=== PATIENT | female | born 2000 | race Caucasian/White ===

== ENCOUNTER 2021-04-24 23:20 | Outpatient (CLI) | payer OTHER ==
[2021-04-25 00:23] VITALS: BP 108/70; PULSE 92; RESP 16; TEMP 96.6
--- NOTE | 2021-04-25 03:08 | P.MSEPDOC ---
Presenting Problems - Arrival Data Date of Arrival on Unit: 04/24/21 Time of Arrival on Unit: 23:20 Mode of Transport: Ambulatory - Complaint OB-Reason for Admission/Chief Complaint: Other Comment: perineal pain and pressure Medical History - Information : 1 Para: 0 Term: 0 : 0 Abortions: Spontaneous or Elective: 0 Number of Living Children: 0 - Gestational Age Gestational Age by ALBERTO (wks/days): 28 Weeks and 3 Days - History Complications: Smoker Review of Systems - Review of Systems Constitutional: No problems Breast: No problems ENT: No problems Cardiovascular: No problems Respiratory: No problems Gastrointestinal: No problems Genitourinary: No problems Musculoskeletal: No problems Neurological: No problems Skin: No problems Comment: perineum and labial reddened and warm Vital Signs - Temperature Temperature: 96.6 F Temperature Source: Temporal Artery Scan - Pulse Pulse Oximetery Pulse Rate: 92 Pulse Assessment Method: Pulse Oximetry - Respirations Respiratory Rate: 16 Oxygen Delivery Method: Room Air O2 Sat by Pulse Oximetry: 98 - Blood Pressure Right Arm Blood Pressure: 108/70 Blood Pressure Mean: 82 Blood Pressure Source: Automatic Cuff Medical Screen Scoring (Pre) - Cervical Exam Dilation: Exam Deferred Effacement: Exam Deferred Membranes: Intact - Uterine Contractions Frequency: N/A Duration: N/A Intensity: N/A - Maternal Vital Signs Maternal Temperature: N/A Maternal Blood Pressure: N/A Signs of Preeclampsia: N/A Maternal Respirations: N/A - Maternal Trauma Maternal Trauma: N/A - Assessment - Baby A Baseline FHR: 125 Heart Rate - NICHD Category: Category I (Normal) = 0 NST: Reactive Position: N/A Station: N/A - Total Score - Baby A Total Score - Baby A: 0 - Total Score - Baby B Total Score - Baby B: 0 - Total Score - Baby C Total Score - Baby C: 0 - Level of Risk - Baby A Level of Risk - Baby A: Low (0-5) - Level of Risk - Baby B Level of Risk - Baby B: Low (0-5) - Level of Risk - Baby C Level of Risk - Baby C: Low (0-5) Physician Notification (Pre) - Physician Notified Physician Notified Date: 04/24/21 Physician Notified Time: 23:58 New Order Received: Yes - Notification Comment Comment: Dr. Gonzáles called, report given on maternal and status, pt complains of. perineal pain/pressure x3days, external tissues are warm to touch and reddened, no. abnormal amount of discharge noted. NST is reactive. Orders to discharge pt home with. instructions to make an appointment to see her OB tomorrow. Disposition - Disposition OB Disposition: Discharge to home Discharge Date: 04/25/21 Discharge Time: 00:06 I agree with the RN Medical Screening Exam: Yes Case reviewed; plan agreed upon as documented in EMR&OBIX.: Yes Diagnosis: PAIN, UNSPECIFIED (This patient is a 21-year-old 1 para 0 female at 28 weeks gestation with care approximately 1 hour away and [facility]. Patient's been having 3 days of perineal discomfort. Examinati on per the RN shows no acute processes. heart tones are reassuring. Patient is instructed follow-up with her primary [employer] SUPERVISOR within 24 hours for a pelvic exam no evidence of maternal compromise at this time.)
== END 2021-04-25 00:06 | disposition home or self-care (01) ==
LOC: FBPOP 23:20
PROVIDERS: ATTEND Obstetrics & Gynecology
DX: O26.893 Other specified pregnancy related conditions, third trimester (principal); O99.333 Smoking (tobacco) complicating pregnancy, third trimester; F17.200 Nicotine dependence, unspecified, uncomplicated; R10.2 Pelvic and perineal pain; Z3A.28 28 weeks gestation of pregnancy
CPT/HCPCS: 59025; G0463; 99213

== ENCOUNTER 2021-05-03 00:32 | Outpatient (CLI) | payer OTHER ==
[2021-05-03 01:04] VITALS: BP 101/55; PULSE 74; RESP 16; TEMP 97.5
[2021-05-03 01:49] LABS: Appearance,Urine Clear (Clear); Bacteria,Urine Rare /hpf; Bilirubin,Urine Negative (Negative); Blood,Urine Negative (Negative); Color,Urine Light Yellow; Glucose,Urine (UA) Negative (Negative); Ketones,Urine Negative (Negative); Leukocyte Esterase,Urine Trace (Negative); Mucus,Urine Rare /hpf; Nitrite,Urine Negative (Negative); Protein,Urine Negative (Negative); RBC,Urine 1 /hpf (0-5); Specific Gravity,Urine 1.005 (1.001-1.035); Squamous Epithelial Cell,Urine 4 /hpf (0-4); Urobilinogen,Urine <2.0 mg/dL (<2.0); WBC,Urine 2 /hpf (0-5)
--- NOTE | 2021-05-22 09:38 | P.MSEPDOC ---
Presenting Problems - Arrival Data Date of Arrival on Unit: 05/03/21 Time of Arrival on Unit: 00:32 Mode of Transport: EMS - Complaint OB-Reason for Admission/Chief Complaint: Pain Comment: Patient arrives to triage via EMS with complaints of left sided abdominal pain. 2/10 since 2299. Patient states she had a Dr. wong yesterday. Medical History - Information : 1 Para: 0 Term: 0 : 0 Abortions: Spontaneous or Elective: 0 Number of Living Children: 0 - Gestational Age Gestational Age by ALBERTO (wks/days): 29 Weeks and 4 Days - History Complications: Smoker Sexually Transmitted Diseases: HSV Review of Systems - Review of Systems Constitutional: No problems Breast: No problems ENT: No problems Cardiovascular: No problems Respiratory: No problems Gastrointestinal: No problems Genitourinary: No problems Musculoskeletal: No problems Neurological: No problems Skin: No problems Vital Signs - Temperature Temperature: 97.5 F Temperature Source: Temporal Artery Scan - Pulse Right Brachial Pulse Rate: 74 Pulse Assessment Method: Automatic Cuff - Respirations Respiratory Rate: 16 Oxygen Delivery Method: Room Air O2 Sat by Pulse Oximetry: 98 - Blood Pressure Right Arm Blood Pressure: 101/55 Blood Pressure Mean: 70 Blood Pressure Source: Automatic Cuff Medical Screen Scoring - Assessment - Baby A Baseline FHR: 135 Physician Notification - Physician Notified Physician Notified Date: 05/03/21 Physician Notified Time: 01:07 Physician: Mague White Order Received: Yes - Notification Comment Comment: RN spoke with Dr. White. RN reported that patient arrived via EMS with. complaints of lower left abdominal pain since 2299. She states that the pain is. intermittent and currently rates it as a 2/10. Reactive NST, vital signs WNL, denies. vaginal bleeding and complications with . Dr. White would like a UA and if it. is normal, patient may be discharged with instructions to follow up with a physician for. care.UA results are WNL. Patient to be discharged with instructions to call. [facility] office to establish care. Patient was seeing a physican in [place]. but has since moved. Patient plans on delivering here. Patient updated on plan of care. and is agreement. Maternal Triage Index - Maternal Triage Index Presenting for scheduled procedure w/no complaint: Yes - Stat/Priority 1 Stat Priority 1: Yes Disposition - Disposition OB Disposition: Physician follow up in office, Discharge to home Discharge Date: 05/03/21 Discharge Time: 02:15 I agree with the RN Medical Screening Exam: Yes Case reviewed; plan agreed upon as documented in EMR&OBIX.: Yes Comments: Patient was neither seen nor examined by me. Diagnosis: UNSPECIFIED ABDOMINAL PAIN
== END 2021-05-03 02:15 | disposition home or self-care (01) ==
LOC: FBPOP 00:32
PROVIDERS: ATTEND Obstetrics & Gynecology
DX: O98.513 Other viral diseases complicating pregnancy, third trimester (principal); O26.893 Other specified pregnancy related conditions, third trimester; O99.333 Smoking (tobacco) complicating pregnancy, third trimester; R10.9 Unspecified abdominal pain; B00.9 Herpesviral infection, unspecified; F17.200 Nicotine dependence, unspecified, uncomplicated; Z3A.29 29 weeks gestation of pregnancy
CPT/HCPCS: 59025; 81001; G0463; 99213

== ENCOUNTER 2021-05-15 14:09 | Outpatient (CLI) | payer OTHER ==
[2021-05-15 15:34] VITALS: BP 103/59; PULSE 81; RESP 16; TEMP 97.3
--- NOTE | 2021-05-24 16:38 | P.MSEPDOC ---
Presenting Problems - Arrival Data Date of Arrival on Unit: 05/15/21 Time of Arrival on Unit: 14:09 Mode of Transport: Ambulatory - Complaint OB-Reason for Admission/Chief Complaint: Pain Comment: pain under bilateral ribs x2 occurrences today, none currently, rates pain 10 when occurring Medical History - Information : 1 Para: 0 Term: 0 : 0 Abortions: Spontaneous or Elective: 0 Number of Living Children: 0 - Gestational Age Gestational Age by ALBERTO (wks/days): 31 Weeks and 2 Days - History Complications: Smoker Review of Systems - Review of Systems Constitutional: No problems Breast: No problems ENT: No problems Cardiovascular: No problems Respiratory: No problems Gastrointestinal: No problems Genitourinary: No problems Musculoskeletal: No problems Neurological: No problems Skin: No problems Vital Signs - Temperature Temperature: 97.3 F Temperature Source: Temporal Artery Scan - Pulse Right Sitting Pulse Rate: 81 Pulse Assessment Method: Automatic Cuff - Respirations Respiratory Rate: 16 Oxygen Delivery Method: Room Air - Blood Pressure Right Arm Blood Pressure: 103/59 Blood Pressure Mean: 73 Blood Pressure Source: Automatic Cuff Medical Screen Scoring - Uterine Contractions Frequency From (mins): 0 Frequency To (mins): 0 - Assessment - Baby A Baseline FHR: 135 Heart Rate - NICHD Category: Category I (Normal) NST: Reactive Physician Notification - Physician Notified Physician Notified Date: 05/15/21 Physician Notified Time: 15:09 Physician: Katharina Corado New Order Received: Yes (d/c home) Maternal Triage Index - Non-Urgent/Priority 4 Non-Urgent Priority 4: Yes Criteria Met for Priority 4: no contractions, reactive nst Disposition - Disposition OB Disposition: Discharge to home Discharge Date: 05/15/21 Discharge Time: 15:22 I agree with the RN Medical Screening Exam: Yes Case reviewed; plan agreed upon as documented in EMR&OBIX.: Yes Diagnosis: RELATED CONDITIONS, UNSPECIFIED, THIRD TRIMESTER
== END 2021-05-15 15:22 | disposition home or self-care (01) ==
LOC: FBPOP 14:09
PROVIDERS: ATTEND Obstetrics & Gynecology Obstetrics
DX: O26.893 Other specified pregnancy related conditions, third trimester (principal); R07.81 Pleurodynia; O99.333 Smoking (tobacco) complicating pregnancy, third trimester; F17.200 Nicotine dependence, unspecified, uncomplicated; Z3A.31 31 weeks gestation of pregnancy
CPT/HCPCS: 59025; G0463; 99213

== ENCOUNTER 2021-10-10 09:30 | Emergency (ER) | payer OTHER ==
[2021-10-10 09:38] VITALS: RESP 18
[2021-10-10 10:05] LABS: Appearance,Urine Clear (Clear); Bilirubin,Urine Negative (Negative); Blood,Urine Negative (Negative); Color,Urine Yellow; Glucose,Urine (UA) Negative (Negative); Ketones,Urine Negative (Negative); Leukocyte Esterase,Urine Trace (Negative); Mucus,Urine Occasional /hpf; Nitrite,Urine Negative (Negative); Protein,Urine Trace (Negative); RBC,Urine <1 /hpf (0-5); Squamous Epithelial Cell,Urine 3 /hpf (0-4); Urobilinogen,Urine <2.0 mg/dL (<2.0); WBC,Urine 1 /hpf (0-5)
--- NOTE | 2021-10-10 10:50 | XR ---
EXAMINATION TYPE: XR chest 2V DATE OF EXAM: 10/10/2021 COMPARISON: NONE HISTORY: Cough, fever TECHNIQUE: Frontal and lateral views of the chest are obtained. FINDINGS: There is no focal air space opacity, pleural effusion, or pneumothorax seen. The cardiac silhouette size is within normal limits. The osseous structures are intact, there is a slight spina l curvature, mild pectus deformity suspected. IMPRESSION: No acute cardiopulmonary process.
--- NOTE | 2021-10-10 12:56 | ED ---
URI HPI - General Chief Complaint: Upper Respiratory Infection Stated Complaint: fever & headache Time Seen by Provider: 10/10/21 09:43 Source: patient, RN notes reviewed Mode of arrival: ambulatory Limitations: no limitations - History of Present Illness Initial Comments: Patient is a 21-year-old female that presents to emergency department complaining of body aches fatigue and upper respiratory tract symptoms including nasal congestion and cough. She also notes that she missed her. They she might be . She notes that her previous was not positive until 2 months in. She notes she wanted tested for Covid. She denied any chest pain shortness breath headache nausea vomiting diarrhea constipation fever fatigue chills. - Related Data Home Medications Medication Instructions Recorded Confirmed Iron 18 mg PO DAILY 04/25/21 05/15/21 Pnv No.95/Ferrous Fum/Folic AC 1 each PO DAILY 04/25/21 05/15/21 [ Multivitamin Tablet] Sennosides [Senna] 8.6 mg PO DAILY 04/25/21 05/15/21 Acyclovir [Zovirax] 200 mg PO TID 05/03/21 05/15/21 Allergies Allergy/AdvReac Type Severity Reaction Status Date / Time No Known Allergies Allergy Verified 10/10/21 09:38 Review of Systems ROS Statement: Those systems with pertinent positive or pertinent negative responses have been documented in the HPI. ROS Other: All systems not noted in ROS Statement are negative. Past Medical History Past Medical History: No Reported History History of Any Multi-Drug Resistant Organisms: None Reported Past Surgical History: Appendectomy, Section Past Psychological History: No Psychological Hx Reported Smoking Status: Current every day smoker, Vaper Past Alcohol Use History: None Reported Past Drug Use History: None Reported General Exam Limitations: no limitations General appearance: alert, in no apparent distress Head exam: Present: atraumatic, normocephalic, normal inspection Eye exam: Present: normal appearance, PERRL, EOMI. Absent: scleral icterus, conjunctival injection, periorbital swelling ENT exam: Present: normal exam, mucous membranes moist Neck exam: Present: normal inspection Respiratory exam: Present: normal lung sounds bilaterally. Absent: respiratory distress, wheezes, rales, rhonchi, stridor Cardiovascular Exam: Present: regular rate, normal rhythm, normal heart sounds. Absent: systolic murmur, diastolic murmur, rubs, gallop, clicks GI/Abdominal exam: Present: soft, normal bowel sounds. Absent: distended, tenderness, guarding, rebound, rigid Extremities exam: Present: normal inspection, full ROM, normal capillary refill. Absent: tenderness, pedal edema, joint swelling, calf tenderness Neurological exam: Present: alert, oriented X3 Psychiatric exam: Present: normal affect, normal mood Skin exam: Present: warm, dry, intact, normal color. Absent: rash Course Vital Signs 10/10/21 10/10/21 09:32 10:08 Temperature 99 F Pulse Rate 106 H Respiratory 18 18 Rate Blood Pressure 110/72 O2 Sat by Pulse 98 Oximetry Medical Decision Making - Medical Decision Making 21-year-old female complaining of upper respiratory tract symptoms and possible . Covid test, chest x-ray, urinalysis with beta-hCG and serum hCG ordered. Urinalysis negative, hCG negative and serum and urine. Covid test negative. Chest x-ray shows no acute card up on her process. Patient most likely has a upper respiratory tract infection caused by another virus. Case discussed with Dr. Castillo, patient discharge home. - Lab Data Lab Results 10/10/21 10/10/21 10/10/21 Range/Units 09:41 09:55 09:55 HCG, Quant <2.4 mIU/mL Urine Color Yellow Urine Appearance Clear (Clear) Urine pH 6.0 (5.0-8.0) Ur Specific [place] 1.020 (1.001-1.035) Urine Protein Trace H (Negative) Urine Glucose (UA) Negative (Negative) Urine Ketones Negative (Negative) Urine Blood Negative (Negative) Urine Nitrite Negative (Negative) Urine Bilirubin Negative (Negative) Urine Urobilinogen <2.0 (<2.0) mg/dL Ur Leukocyte Esterase Trace H (Negative) Urine RBC <1 (0-5) /hpf Urine WBC 1 (0-5) /hpf Ur Squamous Epith Cells 3 (0-4) /hpf Urine Mucus Occasional H (None) /hpf Urine HCG, Qual (Not Detectd) Coronavirus (PCR) Not Detected (Not Detectd) 10/10/21 Range/Units 09:55 HCG, Quant mIU/mL Urine Color Urine Appearance (Clear) Urine pH (5.0-8.0) Ur Specific [place] (1.001-1.035) Urine Protein (Negative) Urine Glucose (UA) (Negative) Urine Ketones (Negative) Urine Blood (Negative) Urine Nitrite (Negative) Urine Bilirubin (Negative) Urine Urobilinogen (<2.0) mg/dL Ur Leukocyte Esterase (Negative) Urine RBC (0-5) /hpf Urine WBC (0-5) /hpf Ur Squamous Epith Cells (0-4) /hpf Urine Mucus (None) /hpf Urine HCG, Qual Not Detected (Not Detectd) Coronavirus (PCR) (Not Detectd) - Radiology Data Radiology results: report reviewed, image reviewed Chest x-ray: No acute cardiopulmonary process. Disposition Clinical Impression: Upper respiratory tract infection Disposition: HOME SELF-CARE Condition: Stable Instructions (If sedation given, give patient instructions): Upper Respiratory Infection (ED) Additional Instructions: Please return to the Emergency Department if symptoms worsen or any other concerns. Follow-up with primary care 1-2 days. Take Tylenol and Motrin alternating every 3 hours as needed for aches pains and fevers. Is patient prescribed a controlled substance at d/c from ED?: No Referrals: Charles Reyes MD [Primary Care Provider] - 1-2 days Time of Disposition: 12:58
[2021-10-10 13:18] VITALS: BP 92/64; PULSE 73; TEMP 98.7
== END 2021-10-10 13:18 | disposition home or self-care (01) ==
LOC: EC 09:30
DX: J06.9 Acute upper respiratory infection, unspecified (principal); R53.83 Other fatigue; F17.290 Nicotine dependence, other tobacco product, uncomplicated; Z20.822 Contact with and (suspected) exposure to COVID-19
CPT/HCPCS: 36415; 71046; 81001; 81025; 84702; 87635; 99284

== ENCOUNTER → 2022-04-10 | Outpatient (CLI) | payer OTHER ==
--- NOTE | 2022-04-11 09:14 | US ---
EXAMINATION TYPE: Ultrasound OB <= 14 week fetus DATE OF EXAM: 04/10/2022 4:14 PM COMPARISON: NONE CLINICAL HISTORY: 22-year-old female Z36.89 CONFIRM GESTATIONAL AGE AND VIABILITY. C Section. A 1. EXAM PERFORMED: Transabdominal (TA) FINDINGS: EXAM MEASUREMENTS: GESTATIONAL AGE / DATING Physician Established: Not yet established. Dates by LMP: ( 9 weeks/4 days) EDC: 11/09/2022 Dates by First Scan: This is first scan. Dates by Current Scan for: (8 weeks/5 days) EDC: 11/15/2022 MATERNAL ANATOMY Uterus: 10.9 x 7.5 x 5.8 cm. Anteverted. Right Ovary: 3.9 x 1.4 x 1.7 cm. Follicles seen. Left Ovary: 2.6 x 1.4 x 1.4 cm. Follicles seen. Post CDS / Adnexa: Appear wnl. Presence of free fluid: None seen. Presence of corpus luteal cyst: Not seen at this time. Presence of subchorionic bleed: Anechoic area seen adjacent to the gestational sac superiorly: 0.4 x 0.9 x 0.7 cm. GESTATION / SURVEY CRL: 20.60 mm (8 weeks/5 days) Yolk Sac (normal less than 6mm): 2.7 mm. Heart Rate: 167 bpm Rhythm: Normal IUP: Viable IUP Date of LMP: 02/02/2022 Beta HcG (if available): Not available. IMPRESSION: 1. Single live intrauterine with estimated gestational age of 9 weeks 4 days by LMP. Curren t ultrasound biometry is smaller by 6 days (8 weeks 5 days). Correlate as to accuracy of recall of LM P. 2. Small 9 mm perigestational bleed along the superior aspect of the gestational sac. 3. Short interval follow-up can be considered. Otherwise, complete survey at 18-20 weeks.
== END | disposition home or self-care (01) ==
LOC: RADUSWWP 15:43
PROVIDERS: ATTEND Obstetrics & Gynecology
DX: Z36.89 Encounter for other specified antenatal screening (principal)
CPT/HCPCS: 76801

== ENCOUNTER 2022-06-08 22:03 | Emergency (ER) | payer OTHER ==
[2022-06-08 22:28] VITALS: BP 109/73; PULSE 90; RESP 15; TEMP 98.7
[2022-06-08] MEDS ORDERED: SODIUM CHLORIDE 0.9% 1,000 ML IV STA (22:42)
[2022-06-08 23:06] LABS: Basophils % (A) 0 %; Eosinophils # (A) 0.1 k/uL (0-0.7); Eosinophils % (A) 1 %; HCT 31.1 % (34.0-46.0); Lymphocytes # (A) 1.7 k/uL (1.0-4.8); Lymphocytes % (A) 20 %; MCH 31.5 pg (25.0-35.0); MCHC 35.3 g/dL (31.0-37.0); MCV 89.3 fL (80.0-100.0); Mean Platelet Volume 7.3; Monocytes # (A) 0.5 k/uL (0-1.0); Monocytes % (A) 5 %; Neutrophils # (A) 6.4 k/uL (1.3-7.7); Neutrophils % (A) 73 %; Platelet Count 212 k/uL (150-450); RBC 3.48 m/uL (3.80-5.40); RDW 14.7 % (11.5-15.5); WBC 8.8 k/uL (3.8-10.6)
[2022-06-08 23:17] LABS: ALT 13 U/L (4-34); AST 23 U/L (14-36); African American GFR (CKD) >90 (>60 ml/min/1.73 sqM); Albumin 3.6 g/dL (3.5-5.0); Alkaline Phosphatase 57 U/L (38-126); Anion Gap 5 mmol/L; Blood Urea Nitrogen 5 mg/dL (7-17); Calcium 8.6 mg/dL (8.4-10.2); Carbon Dioxide 23 mmol/L (22-30); Chloride 108 mmol/L (98-107); Glucose 74 mg/dL (74-99); Lipase 40 U/L (23-300); Non-African American GFR(CKD) >90 (>60 ml/min/1.73 sqM); Potassium 3.8 mmol/L (3.5-5.1); Sodium 136 mmol/L (137-145); Total Bilirubin 0.2 mg/dL (0.2-1.3); Total Protein 6.6 g/dL (6.3-8.2)
[2022-06-08 23:44] LABS: Appearance,Urine Clear (Clear); Bacteria,Urine Rare /hpf; Bilirubin,Urine Negative (Negative); Blood,Urine Negative (Negative); Color,Urine Yellow; Glucose,Urine (UA) Negative (Negative); Ketones,Urine Negative (Negative); Leukocyte Esterase,Urine Trace (Negative); Mucus,Urine Rare /hpf; Nitrite,Urine Negative (Negative); PH, Urine 5.5 (5.0-8.0); Protein,Urine Negative (Negative); RBC,Urine 1 /hpf (0-5); Specific Gravity,Urine 1.018 (1.001-1.035); Squamous Epithelial Cell,Urine 5 /hpf (0-4); Urobilinogen,Urine <2.0 mg/dL (<2.0); WBC,Urine 6 /hpf (0-5)
--- NOTE | 2022-06-08 23:58 | US ---
EXAMINATION TYPE: US OB >= 14 wk fetus DATE OF EXAM: 06/08/2022 COMPARISON: CLINICAL HISTORY: Abdominal pain Generalized abdomen pain that comes and goes. TECHNIQUE: Transabdominal (TA) GESTATIONAL AGE / DATING Physician Established: (18 weeks/0 days) EDC: 11/09/2022 Dates by Current Scan: (17 weeks/6 days) EDC: 11/10/2022 Beta HCG (if available): Not available at this time SURVEY IUP: Single PLACENTA: Posterior with placental lees seen PREVIA: No Previa NIKUNJ: 12.6 cm Normal CERVICAL LENGTH (transabdominal: norm > 3.0cm): 3.2 cm BIOMETRY PRESENTATION: Vertex BPD: 4.0 cm 18 weeks / 1 days HC: 14.4 cm 17 weeks / 5 days AC: 12.0 cm 17 weeks / 5 days FL: 2.6 cm 17 weeks / 6 days ESTIMATED WEIGHT IN GRAMS: 207 grams ESTIMATED WEIGHT IN LBS/OZ: 0 lbs. 7 oz. WEIGHT PERCENTAGE BASED ON ESTABLISHED DATES: 29% HC/AC: 1.2 Normal FL/AC: 21 Normal HEART RATE: 146 bpm RHYTHM: Normal IMPRESSION: The ultrasound gestational age is 17 weeks and 6 days. No complicating process seen. There is satisfa ctory growth compared to 04/10/2022 exam.
--- NOTE | 2022-06-09 00:29 | ED ---
Abdominal Pain HPI - General Chief Complaint: Abdominal Pain Stated Complaint: 18 Weeks, Abdominal Pain Time Seen by Provider: 06/08/22 22:40 Source: patient Mode of arrival: ambulatory Limitations: no limitations - Related Data Home Medications Medication Instructions Recorded Confirmed Iron 18 mg PO DAILY 04/25/21 05/15/21 Pnv No.95/Ferrous Fum/Folic AC 1 each PO DAILY 04/25/21 05/15/21 [ Multivitamin Tablet] Sennosides [Senna] 8.6 mg PO DAILY 04/25/21 05/15/21 Acyclovir [Zovirax] 200 mg PO TID 05/03/21 05/15/21 Allergies Allergy/AdvReac Type Severity Reaction Status Date / Time No Known Allergies Allergy Verified 06/08/22 22:24 Review of Systems ROS Statement: Those systems with pertinent positive or pertinent negative responses have been documented in the HPI. ROS Other: All systems not noted in ROS Statement are negative. Past Medical History Past Medical History: No Reported History History of Any Multi-Drug Resistant Organisms: None Reported Past Surgical History: Appendectomy, Section Past Psychological History: No Psychological Hx Reported Smoking Status: Current every day smoker, Vaper Past Alcohol Use History: None Reported Past Drug Use History: Marijuana General Exam Limitations: no limitations Course Vital Signs 06/08/22 22:25 Temperature 98.7 F Pulse Rate 90 Respiratory 15 Rate Blood Pressure 109/73 O2 Sat by Pulse 98 Oximetry - Reevaluation(s) Reevaluation #1: 06/09/22 00:28 Medical record is reviewed Symptoms are improved here in the emergency department Patient is informed of results and questions answered Patient in no distress Repeat abdominal exam is benign. Patient pain free. Medical Decision Making - Medical Decision Making Pelvic ultrasound reveals intrauterine gestation at 17 weeks 6 days. No, complaining process. heart rate is 146 bpm. Vision symptomology most consistent with nonspecific discomfort related to . This is sporadic pain, possible early [place] contractions. However patient has no vaginal bleeding. No vaginal leakage. We're unable to obtain consistent Patient was told to return to the ER for any signs or symptoms worsen. Told to return immediately if any other problems arise. All questions answered. Treatment plan discussed. Patient in agreement Every effort has been made to ensure accuracy of this dictation. However, due to the limitations of electronic medical records and dictation devices, errors in charting still occur. Discussed follow-up in detail. Discussed pelvic examination and the utility of this. Patient is asymptomatic at this point. No vaginal bleeding. Pelvic examination deferred through shared decision-making. Urinalysis was abnormal but showed significant number of squamous epithelial cells. Patient is asymptomatic. We'll await urine culture. Patient to follow-up with her ehs specialist on Friday. Discussed pelvic rest. Discussed limiting activity. The case was discussed in detail with ED attending physician. Presentation, findings, treatment plan discussed in detail. Side Stitcher Dr. Hassan - Lab Data Result diagrams: 06/08/22 22:51 06/08/22 22:51 Lab Results 06/08/22 06/08/22 06/08/22 Range/Units 22:51 22:51 22:51 WBC 8.8 (3.8-10.6) k/uL RBC 3.48 L (3.80-5.40) m/uL Hgb 11.0 L (11.4-16.0) gm/dL Hct 31.1 L (34.0-46.0) % MCV 89.3 (80.0-100.0) fL MCH 31.5 (25.0-35.0) pg MCHC 35.3 (31.0-37.0) g/dL RDW 14.7 (11.5-15.5) % Plt Count 212 (150-450) k/uL MPV 7.3 Neutrophils % 73 % Lymphocytes % 20 % Monocytes % 5 % Eosinophils % 1 % Basophils % 0 % Neutrophils # 6.4 (1.3-7.7) k/uL Lymphocytes # 1.7 (1.0-4.8) k/uL Monocytes # 0.5 (0-1.0) k/uL Eosinophils # 0.1 (0-0.7) k/uL Basophils # 0.0 (0-0.2) k/uL Sodium 136 L (137-145) mmol/L Potassium 3.8 (3.5-5.1) mmol/L Chloride 108 H (98-107) mmol/L Carbon Dioxide 23 (22-30) mmol/L Anion Gap 5 mmol/L BUN 5 L (7-17) mg/dL Creatinine 0.42 L (0.52-1.04) mg/dL Est GFR (CKD-EPI)AfAm >90 (>60 ml/min/1.73 sqM) Est GFR (CKD-EPI)NonAf >90 (>60 ml/min/1.73 sqM) Glucose 74 (74-99) mg/dL Calcium 8.6 (8.4-10.2) mg/dL Total Bilirubin 0.2 (0.2-1.3) mg/dL AST 23 (14-36) U/L ALT 13 (4-34) U/L Alkaline Phosphatase 57 (38-126) U/L Total Protein 6.6 (6.3-8.2) g/dL Albumin 3.6 (3.5-5.0) g/dL Lipase 40 (23-300) U/L Urine Color Yellow Urine Appearance Clear (Clear) Urine pH 5.5 (5.0-8.0) Ur Specific [place] 1.018 (1.001-1.035) Urine Protein Negative (Negative) Urine Glucose (UA) Negative (Negative) Urine Ketones Negative (Negative) Urine Blood Negative (Negative) Urine Nitrite Negative (Negative) Urine Bilirubin Negative (Negative) Urine Urobilinogen <2.0 (<2.0) mg/dL Ur Leukocyte Esterase Trace H (Negative) Urine RBC 1 (0-5) /hpf Urine WBC 6 H (0-5) /hpf Ur Squamous Epith Cells 5 H (0-4) /hpf Urine Bacteria Rare H (None) /hpf Urine Mucus Rare H (None) /hpf Blood Type Blood Type Confirm Blood Type Recheck Bld Type Recheck Status Antibody Screen Spec Expiration Date 06/08/22 06/08/22 Range/Units 22:51 22:58 WBC (3.8-10.6) k/uL RBC (3.80-5.40) m/uL Hgb (11.4-16.0) gm/dL Hct (34.0-46.0) % MCV (80.0-100.0) fL MCH (25.0-35.0) pg MCHC (31.0-37.0) g/dL RDW (11.5-15.5) % Plt Count (150-450) k/uL MPV Neutrophils % % Lymphocytes % % Monocytes % % Eosinophils % % Basophils % % Neutrophils # (1.3-7.7) k/uL Lymphocytes # (1.0-4.8) k/uL Monocytes # (0-1.0) k/uL Eosinophils # (0-0.7) k/uL Basophils # (0-0.2) k/uL Sodium (137-145) mmol/L Potassium (3.5-5.1) mmol/L Chloride (98-107) mmol/L Carbon Dioxide (22-30) mmol/L Anion Gap mmol/L BUN (7-17) mg/dL Creatinine (0.52-1.04) mg/dL Est GFR (CKD-EPI)AfAm (>60 ml/min/1.73 sqM) Est GFR (CKD-EPI)NonAf (>60 ml/min/1.73 sqM) Glucose (74-99) mg/dL Calcium (8.4-10.2) mg/dL Total Bilirubin (0.2-1.3) mg/dL AST (14-36) U/L ALT (4-34) U/L Alkaline Phosphatase (38-126) U/L Total Protein (6.3-8.2) g/dL Albumin (3.5-5.0) g/dL Lipase (23-300) U/L Urine Color Urine Appearance (Clear) Urine pH (5.0-8.0) Ur Specific [place] (1.001-1.035) Urine Protein (Negative) Urine Glucose (UA) (Negative) Urine Ketones (Negative) Urine Blood (Negative) Urine Nitrite (Negative) Urine Bilirubin (Negative) Urine Urobilinogen (<2.0) mg/dL Ur Leukocyte Esterase (Negative) Urine RBC (0-5) /hpf Urine WBC (0-5) /hpf Ur Squamous Epith Cells (0-4) /hpf Urine Bacteria (None) /hpf Urine Mucus (None) /hpf Blood Type O Negative Blood Type Confirm O Negative Blood Type Recheck No Previous Record Bld Type Recheck Status CABO Indicated Antibody Screen NEGATIVE Spec Expiration Date 06/11/20222350 - Radiology Data Radiology results: report reviewed, image reviewed Disposition Clinical Impression: Abdominal pain affecting Disposition: HOME SELF-CARE Condition: Good Instructions (If sedation given, give patient instructions): Abdominal Pain ( ED), (ED) Additional Instructions: Follow-up with Dr. Bridges on Friday. Call EDM. Return to ER immediately if any symptoms worsen, fever develops, or any other problems arise. Pelvic rest, no sexual activity, no strenuous exertion until cleared by the ehs specialist. Is patient prescribed a controlled substance at d/c from ED?: No Referrals: Rebecca Bridges DO [Doctor of Osteopathic Medicine] - 06/10/22 8:00 am
== END 2022-06-09 01:10 | disposition home or self-care (01) ==
LOC: EC 22:03
DX: O26.892 Other specified pregnancy related conditions, second trimester (principal); R10.9 Unspecified abdominal pain; O99.332 Smoking (tobacco) complicating pregnancy, second trimester; F17.290 Nicotine dependence, other tobacco product, uncomplicated; Z3A.17 17 weeks gestation of pregnancy
CPT/HCPCS: 36415; 76805; 80053; 81001; 83690; 85025; 86850; 86900; 86901; 96360; 99284

== ENCOUNTER → 2022-10-25 | Outpatient (CLI) | payer OTHER ==
[2022-10-25 14:22] VITALS: BP 109/64; PULSE 93; RESP 16; TEMP 97.7
--- NOTE | 2022-10-25 14:35 | P.MSEPDOC ---
Presenting Problems - Arrival Data Date of Arrival on Unit: 10/25/22 Time of Arrival on Unit: 11:30 Mode of Transport: Ambulatory - Complaint OB-Reason for Admission/Chief Complaint: Headache Comment: back pain in Lt shoulder area and down whole Lt side, pelvic pain that is nonspecific Medical History - Information : 2 Para: 1 Term: 1 : 0 Abortions: Spontaneous or Elective: 0 Number of Living Children: 1 - Gestational Age Gestational Age by ALBERTO (wks/days): 37 Weeks and 6 Days - History Complications: Other Comment: Pt states she has an abnormal placenta, "it is not smooth it is jagged" Review of Systems - Review of Systems Constitutional: No problems Breast: No problems ENT: No problems Cardiovascular: No problems Respiratory: No problems Gastrointestinal: No problems Genitourinary: No problems Musculoskeletal: No problems Neurological: No problems Skin: No problems Vital Signs - Temperature Temperature: 97.7 F Temperature Source: Temporal Artery Scan - Pulse Brachial Pulse Rate: 93 Pulse Assessment Method: Automatic Cuff - Respirations Respiratory Rate: 16 Oxygen Delivery Method: Room Air O2 Sat by Pulse Oximetry: 98 - Blood Pressure Right Arm Supine Blood Pressure: 109/64 Blood Pressure Mean: 79 Blood Pressure Source: Automatic Cuff Medical Screen Scoring - Cervical Exam Dilation (cm): 0 Membranes: Intact - Uterine Contractions Intensity: Absent Resting: Soft to palpation - Assessment - Baby A Baseline FHR: 140 Heart Rate - NICHD Category: Category I (Normal) NST: Reactive Physician Notification - Physician Notified Physician Notified Date: 10/25/22 Physician Notified Time: 12:25 Physician: Dr. Bridges New Order Received: No - Notification Comment Comment: Dr. Bridges notifed of maternal assessment, vag exam, NST, vital signs, FHT. Pt may take tylenol and apply heat to shoulder area, obstetrically cleared, may follow up in ER if pt wishes. Maternal Triage Index - Maternal Triage Index Presenting for scheduled procedure w/no complaint: No - Stat/Priority 1 Stat Priority 1: No - Urgent/Priority 2 Urgent Priority 2: No - Prompt/Priority 3 Prompt Priority 3: No - Non-Urgent/Priority 4 Non-Urgent Priority 4: Yes Criteria Met for Priority 4: Pt with c/o headache, Lt shoulder/back pain, non specific pelvic pain Disposition - Disposition OB Disposition: Discharge to home, Written follow up instructions reviewed Discharge Date: 10/25/22 Discharge Time: 12:56 I agree with the RN Medical Screening Exam: Yes Case reviewed; plan agreed upon as documented in EMR&OBIX.: Yes Diagnosis: OTH SYMPTOMS AND SIGNS INVOLVING THE MUSCULOSKELETAL SYSTEM
== END ==
LOC: FBPOP 11:30
PROVIDERS: ATTEND Obstetrics & Gynecology
DX: O26.893 Other specified pregnancy related conditions, third trimester (principal); Z3A.37 37 weeks gestation of pregnancy; R29.898 Other symptoms and signs involving the musculoskeletal system
CPT/HCPCS: 59025; G0463; 99213

== ENCOUNTER 2022-11-01 17:12 | Outpatient (CLI) | payer OTHER ==
[2022-11-01 18:47] VITALS: BP 118/67; PULSE 97; RESP 17; TEMP 97.1
--- NOTE | 2022-11-02 07:20 | P.MSEPDOC ---
Presenting Problems - Arrival Data Date of Arrival on Unit: 11/01/22 Time of Arrival on Unit: 17:12 Mode of Transport: Ambulatory - Complaint OB-Reason for Admission/Chief Complaint: Rule Out SROM Comment: pt presents to triage for possible SROM since early this am at 0300 Medical History - Information : 2 Para: 1 Term: 1 : 0 Abortions: Spontaneous or Elective: 0 Number of Living Children: 1 - Gestational Age Gestational Age by ALBERTO (wks/days): 38 Weeks and 6 Days - History Complications: Prior Review of Systems - Review of Systems Constitutional: No problems Breast: No problems ENT: No problems Cardiovascular: No problems Respiratory: No problems Gastrointestinal: No problems Genitourinary: No problems Musculoskeletal: No problems Neurological: No problems Skin: No problems Vital Signs - Temperature Temperature: 97.1 F Temperature Source: Temporal Artery Scan - Pulse Right Brachial Pulse Rate: 97 Pulse Assessment Method: Automatic Cuff - Respirations Respiratory Rate: 17 Oxygen Delivery Method: Room Air O2 Sat by Pulse Oximetry: 97 - Blood Pressure Right Arm Blood Pressure: 118/67 Blood Pressure Mean: 84 Blood Pressure Source: Automatic Cuff Medical Screen Scoring - Cervical Exam Dilation (cm): 1 Effacement (%): 50 Membranes: Intact - Uterine Contractions Intensity: Mild Resting: Soft to palpation - Assessment - Baby A Baseline FHR: 150 Heart Rate - NICHD Category: Category I (Normal) NST: Reactive Physician Notification - Physician Notified Physician Notified Date: 11/01/22 Physician Notified Time: 18:21 Physician: Benigno Gonzáles New Order Received: Yes - Notification Comment Comment: reactive nst, amniosure negative Maternal Triage Index - Maternal Triage Index Presenting for scheduled procedure w/no complaint: No - Stat/Priority 1 Stat Priority 1: No - Urgent/Priority 2 Urgent Priority 2: No - Prompt/Priority 3 Prompt Priority 3: Yes Criteria Met for Priority 3: pt presents to triage for possible SROM since early this am at 0300 - Non-Urgent/Priority 4 Non-Urgent Priority 4: No - Scheduled/Requesting Priority 5 Scheduled/Requesting Priority 5: No Disposition - Disposition OB Disposition: Triage, Discharge to home, Written follow up instructions reviewed Discharge Date: 11/01/22 Discharge Time: 18:30 I agree with the RN Medical Screening Exam: Yes Case reviewed; plan agreed upon as documented in EMR&OBIX.: Yes Diagnosis: FALSE LABOR AT OR AFTER 37 COMPLETED WEEKS OF GESTATION (Patient presents to labor and delivery with concerns of vaginal fluid over the last 24 hours. Amnio sure was negative. heart tones are reactive without evidence of maternal compromise. Patient was instructed in the future if she has any concerns about rupture membranes to call us immediately rather than wait for a prolonged period of time. Patient will follow-up with Dr. Bridges as scheduled.)
== END 2022-11-01 18:30 | disposition home or self-care (01) ==
LOC: FBPOP 17:12
PROVIDERS: ATTEND Obstetrics & Gynecology
DX: O47.1 False labor at or after 37 completed weeks of gestation (principal); Z3A.38 38 weeks gestation of pregnancy
CPT/HCPCS: 59025; 84112; G0463; 99213

== ENCOUNTER 2022-11-04 05:50 | Inpatient (IN) | payer OTHER ==
--- NOTE | 2022-11-03 16:50 | P.HPOB ---
History of Present Illness H&P Date: 11/03/22 Chief Complaint: Scheduled repeat section This is a 22 y.o. female, 2, para 1, with an estimated date of confinement of 11/09/2022, estimated gestational age of 39-2/7 weeks, who presents for scheduled repeat section. She complains of irregular con tractions and pressure. She has good movement. course has been complicated by circumvallate placenta and she has been doing regular NSTs. labs: Hepatitis B surface antigen-neg RPR-NR Rubella-immuune Blood type-O- Antibody screen-neg HIV-NR Hemoglobin-11.6 Random glucose-68 1 hr. GTT-89 Rhogam given at 28 weeks GBS-neg OB Hx: . 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 Works part-time at [employer]. Review of Systems Constitutional: Denies chills, Denies fever Eyes: denies blurred vision, denies pain Ears, nose, mouth and throat: Denies headache, Denies sore throat Cardiovascular: Denies chest pain, Denies shortness of breath Respiratory: Denies cough Gastrointestinal: Reports abdominal pain (contractions), Denies diarrhea, Denies nausea, Denies vomiting Genitourinary: Reports pelvic pain Musculoskeletal: Reports low back pain Integumentary: Denies pruritus, Denies rash Neurological: Denies numbness, Denies weakness Psychiatric: Denies anxiety, Denies depression Past Medical History Past Medical History: No Reported History History of Any Multi-Drug Resistant Organisms: None Reported Past Surgical History: Appendectomy, Section Past Anesthesia/Blood Transfusion Reactions: No Reported Reaction Past Psychological History: No Psychological Hx Reported Smoking Status: Current every day smoker, Vaper Past Alcohol Use History: None Reported Past Drug Use History: Marijuana - Past Family History Father Family Medical History: Cancer (Lung) Brother(s) Additional Family Medical History / Comment(s): Muscular dystrophy Medications and Allergies Home Medications Medication Instructions Recorded Confirmed Type No Known Home Medications 11/04/22 11/04/22 History Allergies Allergy/AdvReac Type Severity Reaction Status Date / Time No Known Allergies Allergy Verified 11/04/22 05:57 Exam Osteopathic Statement: *. No significant issues noted on an osteopathic structural exam other than those noted in the History and Physical/Consult. HEENT: within normal limits Heart: regular rate and rhythm Lungs: clear to auscultation blilaterally Abdomen: , non-tender Cervix: closed heart tones: 140's by doppler Extremities: neg. Cosme's Results Result Diagrams: 11/04/22 06:15 Assessment and Plan (1) 39 weeks gestation of Current Visit: No Status: Acute Code(s): Z3A.39 - 39 WEEKS GESTATION OF SNOMED Code(s): 49872913 (2) Previous delivery affecting Current Visit: No Status: Acute Code(s): O34.219 - MATERNAL CARE FOR UNSP TYPE SCAR FROM PREVIOUS DEL SNOMED Code(s): 646057648 Plan: Proceed with repeat low transverse section. I have discussed the risks, benefits, and alternative therapies for the above- mentioned procedure and for both sedation/anesthesia as well as necessary blood products administration, if indicated, as they pertain to this patient. The patient has indicated her understanding and acceptance of the risks and procedures discussed.
[2022-11-04] MEDS ORDERED: LIDOCAINE 1% (10MG/ML) FOR IV START INTRADERMA PRN (05:58)
[2022-11-04] MEDS ORDERED: LACTATED RINGERS 1,000 ML IV ONE (05:58)
[2022-11-04] MEDS ORDERED: CITRIC ACID-SODIUM CITRATE 15 ML CUP PO ONE (05:58)
[2022-11-04] MEDS ORDERED: LACTATED RINGERS 1,000 ML IV SCH (05:58)
[2022-11-04 06:55] LABS: Anisocytosis Slight; Basophils % (A) 0 %; Eosinophils # (A) 0.1 k/uL (0-0.7); Eosinophils % (A) 1 %; HCT 28.9 % (34.0-46.0); Hypochromasia Marked; Lymphocytes # (A) 1.7 k/uL (1.0-4.8); Lymphocytes % (A) 18 %; MCH 24.4 pg (25.0-35.0); MCHC 31.2 g/dL (31.0-37.0); MCV 78.1 fL (80.0-100.0); Mean Platelet Volume 8.8; Microcytosis Slight; Monocytes # (A) 0.4 k/uL (0-1.0); Monocytes % (A) 4 %; Neutrophils # (A) 7.3 k/uL (1.3-7.7); Neutrophils % (A) 75 %; Platelet Count 225 k/uL (150-450); Poikilocytosis Slight; RDW 16.4 % (11.5-15.5); WBC 9.7 k/uL (3.8-10.6)
[2022-11-04] MEDS ORDERED: ONDANSETRON 4 MG/2 ML VIAL ONE (07:56)
[2022-11-04] MEDS ORDERED: OXYTOCIN 30 UNITS/500 ML NS BAG IV ONE (07:56)
[2022-11-04] MEDS ORDERED: MORPHINE SULFATE (PF) 0.3 MG/0.3 ML SYR ONE (07:56)
[2022-11-04] MEDS ORDERED: KETOROLAC 15 MG/ML 1 ML VIAL ONE (07:56)
[2022-11-04] MEDS ORDERED: MIDAZOLAM 2 MG/2 ML VIAL ONE (07:56)
[2022-11-04 08:04] LABS: Amphetamine Screen,Urine Not Detected (NotDetected); Barbiturate Screen,Urine Not Detected (NotDetected); Benzodiazepines Screen,Urine Not Detected (NotDetected); Cocaine Screen,Urine Not Detected (NotDetected); Methadone Screen, Urine Not Detected (NotDetected); Opiate Screen,Urine Not Detected (NotDetected); Oxycodone Screen, Urine Not Detected (NotDetected); Phencyclidine Screen,Urine Not Detected (NotDetected); Tricyclic Antidepressant,Urine Not Detected (NotDetected); Urn Cannabinoid Scrn Not Detected (NotDetected)
--- NOTE | 2022-11-04 08:39 | P.OP ---
Date of Procedure: 11/04/22 Preoperative Diagnosis: 1. Intrauterine at 39-2/7 weeks. 2. History of previous section. 3. Circumvallate placenta. Postoperative Diagnosis: Same Procedure(s) Performed: Repeat low transverse section Anesthesia: spinal (Duramorph) Surgeon: Rebecca Bridges Leases And Land Supervisor #1: Benigno Gonzáles Estimated Blood Loss (ml): 400 Pathology: other (Placenta) Condition: stable Disposition: floor Indications for Procedure: This is a 22-year-old female 2 para 1 at 39-2/7 weeks who presents for scheduled repeat section. Please see history and physical for details of patient's admission. I have discussed the risks, benefits, and alternative therapies for the above- mentioned procedure and for both sedation/anesthesia as well as necessary blood products administration, if indicated, as they pertain to this patient. The patient has indicated her understanding and acceptance of the risks and procedures discussed. Operative Findings: A viable male infant is noted in the vertex presentation with scores of 9 at 1 minute and 9 at 5 minutes and weight of 6 lbs. 14 oz. Normal uterus tubes and ovaries are noted. Thin lower uterine segment is also noted. Description of Procedure: The patient is taken to the operating room where she is placed in the dorsal supine position with leftward tilt after spinal Duramorph anesthesia is given. She is prepped and draped in the normal sterile fashion. Skin was tested and found to be adequately anesthetized. A Pfannenstiel skin incision was made with a scalpel through the previous scar. A second knife was used to carry the incision down to the underlying layer of fascia. The fascia was nicked in the midline with a scalpel and then extended laterally bilaterally with Mccarthy scissors. The anterior lip of the fascia was grasped with 2 Thomas clamps and then dissected off the underlying rectus muscle in the midline with Mccarthy scissors. The inferior aspect of the fascial incision was grasped with 2 Thomas clamps and dissected off the underlying rectus muscle and the midline with Mccarthy scissors. Next the peritoneum layer was tented up with 2 hemostats and then entered sharply with the scalpel. The incision is extended superiorly and inferiorly with Metzenbaum scissors. Next a DeLee retractor is placed. The lower uterine segment is noted to be very thin. The vesicouterine peritoneum is entered sharply with Metzenbaum scissors and extended laterally bilaterally with Metzenbaum scissors and then the bladder flap is pushed inferiorly. The lower uterine segment is incised in transverse fashion with the scalpel and then bluntly entered with a hemostat. Clear fluid is noted. The incision was then extended laterally bilaterally with 2 fingers. Next the 's head is delivered through the incision. Nose and mouth are bulb suctioned. The remainder of the infant is easily delivered and placed on mother's abdomen. Cord is clamped and cut. is taken to warmer by nursing staff. Uterine fundus is gently massaged and placenta is delivered manually. Uterus is exteriorized and cleared of all clots and debris. Uterine incision is closed with 0 Vicryl suture in a running locked fashion. A second layer of 0 Vicryl suture is used in a running fashion for hemostasis. Good hemostasis is noted. Posterior cul-de-sac is suctioned of all clots and debris. Uterus is returned to the abdomen. Incision is noted to be hemostatic. Peritoneal layer is closed with 0 Vicryl suture in a running fashion. Muscle layer is reapproximated with 0 Vicryl suture in interrupted fashion. Fascia layer is then closed with 0 PDS suture with 2 sutures meeting in the midline and the knots buried in either side and in the midline. The subcutaneous tissue was then closed with 2-0 Vicryl s uture. Skin layer was then closed with hayley. All sponge and needle counts are correct. The patient is taken to recovery room in stable condition.
[2022-11-04] MEDS ORDERED: LANOLIN CREAM 5 GM TUBE TOPICAL PRN (08:48)
[2022-11-04] MEDS ORDERED: ZOLPIDEM 5 MG TAB PO PRN (08:48)
[2022-11-04] MEDS ORDERED: diphenhydrAMINE 50 MG CAP PO PRN (08:48)
[2022-11-04] MEDS ORDERED: ONDANSETRON 4 MG/2 ML VIAL IVP PRN (08:48)
[2022-11-04] MEDS ORDERED: diphenhydrAMINE 50 MG/ML 1 ML VIAL IVP PRN ×2 (08:48)
[2022-11-04] MEDS ORDERED: NALOXONE 0.4 MG/ML 1 ML VIAL IV PRN (08:48)
[2022-11-04] MEDS ORDERED: OXYTOCIN 30 UNITS/500 ML NS 30 UNIT in SALINE 1 500ML.BAG IV SCH (08:48)
[2022-11-04] MEDS ORDERED: HYDROmorphone 0.5 MG/0.5 ML SYRINGE IVP PRN (08:48)
[2022-11-04] MEDS ORDERED: diphenhydrAMINE 25 MG CAP PO PRN (08:48)
[2022-11-04] MEDS ORDERED: HYDROmorphone 1 MG/ML 1 ML SYRINGE IVP PRN (08:48)
[2022-11-04] MEDS ORDERED: METOCLOPRAMIDE 5 MG/ML 2 ML VIAL IVP PRN (08:48)
[2022-11-04] MEDS ORDERED: SIMETHICONE 80 MG CHEWABLE PO PRN (08:48)
[2022-11-04] MEDS: ACETAMINOPHEN IV (For NPO) 1,000 MG in EMPTY BAG 1 BAG IVPB SCH ×2 (13:16→18:27)
[2022-11-04] MEDS: KETOROLAC 15 MG/ML 1 ML VIAL IVP SCH (15:56)
[2022-11-04] MEDS: ACETAMINOPHEN TAB 500 MG TAB PO SCH ×2 (16:00→18:26)
[2022-11-04] MEDS: SENNOSIDES-DOCUSATE SODIUM 1 EACH TAB PO SCH ×2 (16:50→22:07)
[2022-11-04] MEDS: IBUPROFEN 600 MG TAB PO SCH ×2 (16:51→22:06)
[2022-11-04] MEDS ORDERED: Rhogam IMMUNE GLOBULIN 1,500 UNIT/1 ML IM ONE (18:30)
[2022-11-05] MEDS: ACETAMINOPHEN TAB 500 MG TAB PO SCH ×3 (00:29→23:47)
[2022-11-05] MEDS: KETOROLAC 15 MG/ML 1 ML VIAL IVP SCH ×2 (00:30→06:56)
[2022-11-05] MEDS: IBUPROFEN 600 MG TAB PO SCH ×3 (04:34→19:54)
--- NOTE | 2022-11-05 06:54 | P.PN ---
Progress Note - Text Progress Note Date: 11/05/22 Ms. Jay is a 22 -year-old female had a history of under spinal a nalgesia with Astramorph 300 g for postop pain. Today patient is comfortable sitting in her bed. Today patient rated her pain level 3 out of 10 in severity. Denied any fever, drowsiness, confusion. Denied any weakness, tingling sensation in her lower extremities. Denied any bowel or bladder problems. Moving all extremities without any difficulty. Able to walk without any difficulties. Vitals: Hemodynamically stable Continue oral pain medication as per primary team.
[2022-11-05 07:53] LABS: Anisocytosis Slight; Basophils % (A) 0 %; Eosinophils # (A) 0.1 k/uL (0-0.7); Eosinophils % (A) 1 %; HCT 25.2 % (34.0-46.0); HGB 7.9 gm/dL (11.4-16.0); Hypochromasia Marked; Lymphocytes # (A) 1.6 k/uL (1.0-4.8); Lymphocytes % (A) 18 %; MCH 25.1 pg (25.0-35.0); MCHC 31.4 g/dL (31.0-37.0); Mean Platelet Volume 7.7; Monocytes # (A) 0.5 k/uL (0-1.0); Monocytes % (A) 6 %; Neutrophils # (A) 6.5 k/uL (1.3-7.7); Neutrophils % (A) 74 %; Platelet Count 159 k/uL (150-450); Poikilocytosis Slight; RBC 3.15 m/uL (3.80-5.40); RDW 16.2 % (11.5-15.5); WBC 8.8 k/uL (3.8-10.6)
[2022-11-05] MEDS: SENNOSIDES-DOCUSATE SODIUM 1 EACH TAB PO SCH ×2 (08:09→19:54)
--- NOTE | 2022-11-05 17:45 | P.PNOBGPC ---
Subjective - Subjective Principal diagnosis: S/P Repeat LTCS POD#1 Interval history: Late entry, patient seen at about 1300. Pt. states baby feeding ok. Passing flatus but no bowel movement yet. States pain ok as long as she keeps up on her meds. Urinating ok. Patient reports: Reports appetite normal, Reports voiding normally, Reports ambulating normally : doing well Objective - Vital Signs Latest vital signs: Vital Signs Temp Pulse Resp BP Pulse Ox 11/05/22 16:46 98.8 F 89 16 102/65 98 11/05/22 08:00 97.4 F L 82 16 118/68 11/05/22 04:20 98.7 F 78 16 94/51 98 11/05/22 00:00 98.2 F 82 16 111/69 99 11/04/22 19:57 98.7 F 84 14 105/54 97 Intake and Output 11/05/22 11/05/22 11/05/22 06:59 14:59 22:59 Other: # Voids 1 - Exam Extremities: Present: normal. Absent: tenderness Abdomen: Present: normal appearance, soft (+bowel sounds x 4). Absent: tenderness Incision: Present: normal, dry, intact. Absent: erythematous Uterus: Present: normal, firm. Absent: tenderness Comments: Patient is very lethargic and keeps falling asleep when I'm asking her questions. - Labs Labs: Abnormal Lab Results - Last 24 Hours (Table) 11/05/22 Range/Units 07:23 RBC 3.15 L (3.80-5.40) m/uL Hgb 7.9 L (11.4-16.0) gm/dL Hct 25.2 L (34.0-46.0) % RDW 16.2 H (11.5-15.5) % Assessment and Plan Assessment: S/P Repeat low transverse section post op day #1 (1) 39 weeks gestation of Current Visit: No Status: Acute Code(s): Z3A.39 - 39 WEEKS GESTATION OF SNOMED Code(s): 03264262 (2) Previous delivery affecting Current Visit: No Status: Acute Code(s): O34.219 - MATERNAL CARE FOR UNSP TYPE SCAR FROM PREVIOUS DEL SNOMED Code(s): 261335682 Plan: Nurse states patient is asking for oxycodone, but is lethargic and having trouble keeping her eyes open. She has also requested to take a walk outside and nurse advised her to stay on the unit. Will continue to monitor sedation level. Advance diet as tolerated.
[2022-11-06] MEDS: ACETAMINOPHEN TAB 500 MG TAB PO SCH ×4 (00:22→12:54)
[2022-11-06] MEDS: IBUPROFEN 600 MG TAB PO SCH ×4 (00:23→09:38)
[2022-11-06] MEDS: KETOROLAC 15 MG/ML 1 ML VIAL IVP SCH ×2 (00:23→00:24)
[2022-11-06 07:48] VITALS: BP 103/63; PULSE 82; RESP 16; TEMP 98.6
[2022-11-06] MEDS: SENNOSIDES-DOCUSATE SODIUM 1 EACH TAB PO SCH (07:52)
--- NOTE | 2022-11-06 09:01 | P.DS ---
Providers Date of admission: 11/04/22 05:50 Expected date of discharge: 11/06/22 Attending physician: Rebecca Bridges Primary care physician: Stated None - Discharge Diagnosis(es) (1) 39 weeks gestation of Current Visit: No Status: Acute (2) Previous delivery affecting Current Visit: No Status: Acute Hospital Course: This is a 22-year-old female 2 para 1 at 39-2/7 weeks who presented for a repeat section. She underwent this procedure on 11/04/2022 and delivered a viable male with scores of 9 at 1 minute and 9 at 5 minutes and infant weight of 6 lbs. 14 oz. Her course has been uncomplicated. Her pain is been fairly well-controlled with oxycodone and ibuprofen and Tylenol. She is passing flatus but no bowel movement yet. She is breast-feeding. Lochia is decreasing. Her pain is overall well controlled. Vi danette signs are stable. Abdomen is soft with fundus firm and nontender. Incision is clean dry and intact with hayley in place. Extremities show negative Homans. Impression is status post repeat low transverse section postoperative day #2. Plan is to discharge home today. Routine instructions are given she will be given a prescription for ibuprofen and oxycodone. She has been counseled regarding opioid use and has signed a consent form. She is instructed to follow-up in the office in 1 week for a postoperative check and in 6 weeks for check. She is advised to call the office if she has any further questions or concerns prior to her appointment time. Mikael will be removed prior to discharge today. Procedures: Repeat low transverse section on 11/04/2022 Patient Condition at Discharge: Stable Plan - Discharge Summary New Discharge Prescriptions: New Ibuprofen [Motrin] 600 mg PO Q6H #60 tab oxyCODONE HCL [OxyIR] 5 mg PO Q4HR PRN #18 tab PRN Reason: Pain Scale 4 - 6 Discharge Medication List Ibuprofen [Motrin] 600 mg PO Q6H #60 tab 11/06/22 [Rx] oxyCODONE HCL [OxyIR] 5 mg PO Q4HR PRN #18 tab 11/06/22 [Rx] Follow up Appointment(s)/Referral(s): Rebecca Bridges DO [Doctor of Osteopathic Medicine] - 1 Week (PO 11/13/2022 @1:30 PP 12/16/2022 @11:15) Activity/Diet/Wound Care/Special Instructions: Instructions 1. Do not begin any exercise program for 3 weeks. 2. Do not resume sexual relations for 3 weeks or longer if uncomfortable. 3. You may take tub baths or showers at any time. 4. You may use tampons if desired after 3 weeks. 5. Keep the area of episiotomy (stitches) clean and dry. 6. If you are not nursing, wear a good fitting, supportive bra during the day and limit fluid intake for at least 1 week to prevent breast engorgement. 7. Call the office, [phone], within the next week to make appointment for your 6 week checkup if it has not already been made. 8. Report any of the following occurrences to the doctor promptly: a. Heavy, excessive bleeding b. Chills, fever c. Burning or frequency of urination d. Pain or redness and breasts if nursing e. Increasing pain or swelling in episiotomy (stitches). In addition to the above instructions, the following additional should be followed: 1. No heavy lifting or straining (exercising) until after 6 week checkup. 2. Keep abdominal incision clean and dry: You may wear a dressing if more comfortable. 3. Make office appointment for 10 days after going home or as instructed by her doctor. Discharge Disposition: HOME SELF-CARE
== END 2022-11-06 12:30 | disposition home or self-care (01) | DRG 787 ==
LOC: 4FBP 05:50
PROVIDERS: ADMIT Obstetrics & Gynecology; ATTEND Obstetrics & Gynecology
PROC: 4A0HXCZ Measurement of Products of Conception, Cardiac Rate, External Approach (ICD-10-PCS; 2022-11-04)
PROC: 10D00Z1 Extraction of Products of Conception, Low, Open Approach (ICD-10-PCS; principal; 2022-11-04 08:09)
DX: O34.211 Maternal care for low transverse scar from previous cesarean delivery (principal); O98.32 Other infections with a predominantly sexual mode of transmission complicating childbirth; F17.290 Nicotine dependence, other tobacco product, uncomplicated; O43.113 Circumvallate placenta, third trimester; O99.334 Smoking (tobacco) complicating childbirth; Z37.0 Single live birth; Z3A.39 39 weeks gestation of pregnancy; Z86.19 Personal history of other infectious and parasitic diseases
CPT/HCPCS: 80306; 85025; 85461; 86850; 86870; 86880; 86900; 86901; 88307